=== PATIENT | female | born 1955 | race Caucasian/White ===

== ENCOUNTER 2016-11-24 17:05 | Observation (INO) | payer MEDICAID ==
[~2016-11-24] VITALS: Ht 167.6 cm; Wt 103.9 kg
[~2016-11-24 17:05] MED LIST: BENADRYL 25MG C25 MG PO; BENADRYL ALLERG25 MG PO; CIPRO 500MG TA500 MG PO; D3-20002000 UNIT PO; DIAZEPAM2 MG PO; DIOVAN PO; DIOVAN80 MG OR; EFFEXOR75 MG PO; FLEXERIL5 MG PO; GABAPENTIN100 M1 PO; GABAPENTIN100 MG PO; GAVISCON 95 MG360 ML PO; HYDROCHLOROTHIA25 M1 PO; IMDUR ER30 MG PO; INVEGA6 MG PO; ISOSORBIDE MONO30 MG PO; KLOR-CON M2020 ME1 PO; LACTULOSE10 GM/15 M PO; LACTULOSE20 GM/30 M FT; LOSARTAN POTAS100 MG PO; MACRODANTIN100 MG PO; MAXZIDE 50 MG-71 TAB OR; MAXZIDE1 TAB PO; METFORMIN HCL1000 MG PO; METFORMIN1000 MG PO; METOPROLOL100 MG PO; MICONAZOLE1 POW; NAPROSYN500 M1 PO; NEURONTIN600 MG PO; NITROGLYCERIN0.4 MG SL; NORCO 325 MG-51 TAB PO; NYSTATIN C30 GM/TUBE EX; OMEPRAZOLE40 MG PO; OMNICEF 300 MG300 MG PO; PANTOPRAZOLE SO40 MG PO; PERCOGESIC1 TAB PO; PREDNISONE 20MG20 MG PO; PROMETHAZINE HC25 M1 PO; RESTORIL 30MG C30 MG PO; RISPERDAL2 MG PO; ROBAFEN DM 10120 ML PO; TEMAZEPAM15 MG PO; TRAMADOL 50MG T1 PAK PO; TRAMADOL 50MG T50 MG PO; TRAZODONE150 MG PO; TYLENOL ES500 M1 PO; VENLAFAXINE HCL75 M1 PO; VENLAFAXINE HY150 MG PO; VISTARIL25 MG PO; VITAMIN D350000 UNIT PO; VOLTAREN100 GM TP; ZANTAC 150150 MG PO; ZYLOPRIM 100MG100 MG PO
[2016-11-24 17:06] VITALS: BP 157/77
[2016-11-24] MEDS ORDERED: HUMULIN 70/30 KW3 ML SC (17:16)
--- NOTE | 2016-11-24 17:22 | Emergency Room Report ---
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 EMS STATES THEY WERE CALLED OUT FOR HIGH BLOOD SUGAR >300. 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 N Clinical Suspician of Infection? N Mental Status: 1 - Regular (Normal Baseline) Sepsis Risk:Low Sepsis Risk Have you (or family members/close friends) recently traveled outside the [place]? N If Yes, where/when: Have you had exposure to infectious disease within the past month? TB? Other? Specify: Comment The patient is brought in by ambulance from [facility] with report of elevated blood sugar. The patient says she was not told how high her blood sugar was. She says she feels woozy. She has chronic RIGHT knee pain. Otherwise denies complaint. She says she gets for insulin shots a day, 2 in the morning and 2 at 4:30 PM. She said she has had all for these today. ALLERGIES Coded Allergies: Penicillins (01/04/16) Sulfa (Sulfonamide Antibiotics) (01/04/16) codeine (01/04/16) Home Medications Active Scripts Isosorbide Mononitrate (Isosorbide Mononitrate ER) 60 MG PO DAILY #30 Ref 1 Prov: 08/05/15 Ranitidine Hcl (Zantac) 150 MG PO BID #20 TAB Prov: 11/14/14 Ciprofloxacin HCl (Cipro 500MG TAB) 500 MG PO BID #14 TAB Prov: 04/14/16 Reported Medications Acetaminophen (Tylenol Extra-Strength) 650 MG PO Q4HP PRN PAIN Gabapentin (Gabapentin 100MG) 200 MG PO TID Tramadol Hcl (Tramadol 50MG) 50 MG PO Q6HP PRN PAIN TRIAMTERENE/HYDROCHLOROTHIAZID (Maxzide 75 MG-50 MG Tablet) 1 TAB PO DAILY Valsartan (Diovan 80MG) 80 MG PO DAILY Lactulose (Lactulose) 20 GM PO DAILYP PRN CONSTIPATION NITROGLYCERIN (Nitrostat) 0.4 MG SL [id number] PRN CHEST PAIN Guaifenesin (Robafen) 10 ML PO Q4HP PRN COUGH Metoprolol Tartrate (Metoprolol) 100 MG PO BID Diphenhydramine Hcl (Benadryl 25MG CAP) 25 MG PO Q4H PRN PRN RASH PROMETHAZINE HCL (Promethazine 25mg Tab) 25 MG PO Q6HP PRN NAUSEA/VOMITING Temazepam (Restoril 30MG) 30 MG PO QHSP PRN SLEEP Paliperidone (Invega) 6 MG PO DAILY Pantoprazole Sodium (Pantoprazole 40MG) 40 MG PO DAILY Venlafaxine Hydrochloride (Venlafaxine XR) 150 MG PO DAILY Venlafaxine Hydrochloride (Venlafaxine XR) 75 MG PO QHS MAG CARB/AL HYDROX/ALGINIC AC (Gaviscon Liquid) 30 ML PO Q4HP PRN STOMACH ALLOPURINOL (ZYLOPRIM 100MG) 100 MG PO DAILY CHOLECALCIFEROL (VITAMIN D3) (Dialyvite Vitamin D3 Max) 50,000 IUNITS PO WEEKLY Cholecalciferol (Vitamin D3) (Vitamin D3) 2,000 UNIT PO DAILY INSUL REG 30%ISOPHAN 70% HUMAN (Humulin 70-30 Vial) 75 UNITS SC TID (David Rasheed MD) History Medical History General CAD? No Angina: No [place]: No Hypertension? Yes Hyperlipidemia? No CHF? No DVT? No PE? No COPD? No Asthma? Yes Anemia? No GERD? No Gastric ulcers? No GI Bleed? No Hernia? No Thyroid Problems? No Hypothyroidism? No CVA? No Seizures? Yes Diabetes? Yes Insulin Dependent: No Insulin Pump: No Home FSBS? No Renal Insuffiency? No End Stage Renal Disease? No UTI? Yes Stones? No BPH? No GB Disease: No Nephritic Syndrome? No Asplenia? No Hepatitis? No Sickle Cell Disease? No Arthritis? No Migraines? No Cataracts? No Glaucoma? Yes MRSA? No HIV? No TB? No Anxiety? No Depression? No Cancer? Yes Site: SKIN CA -NOSE More? Yes Additional hx: OSTEOARTHRITIS, PARANOID SCHIZOPHRENIA Immunization Hx DT/Tetanus Unknown Flu Refused Pneumonia Refuses Surgical Hx Previous Surgery?Y HEART CATH TMJ HYSTERECTOMY Family History Family Hx Diabetes Yes CAD Yes Hypertension Yes Hyperlipidemia Yes Cancer No TB No Social History Smoking Hx Smoker: Never Smoker Tobacco: No Packs/day < 1 Pack Alcohol Alcohol: No (David Rasheed MD) Review of Systems All Other Systems Reviewed and Negative Constitutional see HPI, denies fever Respiratory denies shortness of breath Cardiovascular denies chest pain Gastrointestinal denies abdominal pain, denies diarrhea, denies vomiting Musculoskeletal joint pain (David Rasheed MD) Physical Exam Vital Signs Vital Signs Date Time Temp Pulse Resp B/P Pulse O2 O2 Flow FiO2 Ox Delivery Rate 11/24 2049 68 14 176/83 93 11/24 1852 70 14 120/76 98 11/24 1815 74 14 144/91 98 11/24 1706 98.0 70 18 157/77 95 General Appearance high BMI Eye Exam - bilateral eye normal exam, bilateral eye PERRL, bilateral eye EOMI Ear, Nose, Throat hearing grossly normal, normal ENT inspection Neck normal inspection, non-tender, supple, full range of motion Respiratory Status Yes: trachea midline, chest symmetrical, non tender chest. No: respiratory distress. Lung Sounds bilateral: normal breath sounds, lungs clear. Cardiovascular normal exam, regular rate/rhythm, no peripheral edema, no gallop, no JVD, no murmur, no rub, normal peripheral pulses Peripheral Pulses Pulses normal Yes Gastrointestinal normal bowel sounds, normal exam, non tender, soft, no organomegaly Extremities non-tender, normal range of motion, normal inspection Neurologic alert, dry roller II-XII nml as tested, normal exam, no motor/sensory deficits, oriented x 3 Mental status normal mood/affect Skin intact, normal color, warm/dry (David Rasheed MD) Medical Decision Making LABS/Meds/Orders Pt receiving controlled substance in ED? No Results/Orders Laboratory Tests 11/24/16 2030: Urine Color OTHER, Urine Appearance CLEAR, Urine pH 6.0, Ur Specific [place] 1.010, Urine Protein NEGATIVE, Urine Ketones NEGATIVE, Urine Blood 2+ H, Urine Nitrate NEGATIVE, Urine Bilirubin NEGATIVE, Urine Urobilinogen 0.2, Ur Leukocyte Esterase NEGATIVE, Urine RBC NONE, Urine WBC 3-5, Ur Squamous Epith Cells OCC, Urine Bacteria TRACE, Urine Glucose 3+ H 11/24/16 2001: POC Glucose 539 *H 11/24/161744: Sodium 128 L, Potassium 4.7, Chloride 96 L, Carbon Dioxide 23, BUN 18, Creatinine 1.6 H, Estimated Creat Clear 62, Estimated GFR (MDRD) 33 L, Glucose 638 *H, Calcium 9.6, Total Bilirubin 0.3, AST 62 H, ALT 53, Alkaline Phosphatase 171 H, Creatine Kinase 32, CK-MB (CK-2) Rel Index 1.6, CK and CKMB Interp 0.5, Troponin I < 0.02, Total Protein 7.7, Albumin 2.9 L, Globulin 4.8 H, Albumin/Globulin Ratio 0.6 L, WBC 8.2, RBC 3.98 L, Hgb 11.2 L, Hct 37.6, MCV 94.3, RDW 13.9, Plt Count 164, MPV 7.8, Gran % 59.3, Gran # 4.9, Lymphocytes % 30.8, Monocytes % 5.7, Eosinophils % 3.4, Basophils % 0.9, Lymphocytes # 2.5, Monocytes # 0.5, Eosinophils # 0.3, Basophils # 0.1, PUBS MCHC 29.7 L, MCH 28.0 , Acetone Level NONE DETECTED 11/24/161743: VBG pH 7.38, VBG Total CO2 23.1, VBG O2 Sat (Calc) 90.2 H, VBG Base Excess -3.1 L, Mixed VBG pCO2 37.6 L, Mixed VBG pO2 59.1 H, Mixed VBG HCO3 21.9 L Current Medication Orders Sig/Elisabeth Start time Last Medication Dose Route Stop Time Status Admin Insulin Human Regular 5 UNITS ONCE ONE 11/24 2114 DC 11/24 IVP 11/24 Insulin Human Regular 0 .STK-MED ONE 11/24 2112 DC .ROUTE Insulin Human [rDNA 0 .STK-MED ONE 11/25 1903 DC origin] SC Sodium Chloride 1,000 ML .STK-MED ONE 11/24 1902 DC IV Insulin Human [rDNA 15 UNITS ONCE ONE 11/24 1899 DC 11/24 origin] SC 11/24 Sodium Chloride 1,000 ML .Q1H1M 11/24 1845 DC 11/24 IV 11/24 Sodium Chloride 10 ML PRN PRN 11/24 1714 AC IV 11/25 1713 Orders Procedure Date/time Status DIET-NOTHING BY MOUTH 11/25 B Active Decision to admit 11/[address] ABD & PELVIS W/O CONTRAST 11/[address] SCAN REQ 11/24 2108 Complete URINARY CATHETER INSERT 11/24 2008 Active FINGERSTICK BLOOD SUGAR 11/24 2000 Complete VENOUS BLOOD GAS 11/25 1719 Active IV SALINE LOCK 11/24 1714 Active 12 LEAD EKG-ALISSA (INITIAL) 11/24 1713 Active ELECTROCARDIOGRAM REQUEST 11/24 1713 Active CHEST-PORTABLE 11/24 1713 Active URINALYSIS/COMPLETE 11/24 1713 Complete INVESTIGATION DIVISION SERGEANT 11/24 1712 Active FSBS REQUEST BY CARE AREA 11/24 171 Active CBC WITH AUTO DIFF 11/24 1712 Complete CARDIAC ENZYMES 11/24 1712 Complete CHEM 12 PROFILE 11/24 1712 Complete Acetone, Serum 11/24 1712 Complete CM/EKG CM/EKG Comments EKG interpreted by David Rasheed MD: Rhythm: sinus Rate: 69 [place]: normal Ectopy: none Conduction: Complete LEFT bundle branch block, old. ST Segment Changes: none T Wave Changes: none Q Waves: none No evidence of acute ischemia or injury Baseline artifact present, but I consider the EKG adequate for accurate interpretation. No change from prior electrocardiogram Progress - 8:00 PM: At shift change, I have discussed the patient with Dr. Gayle, who will assume care of the patient at this time. I have discussed all clinical information including history, physical and diagnostic study results. Preliminary diagnoses based on information available at this point have been recorded by me. Controlled substance administration and critical care statement are also preliminary, as of the time of handoff. (David Rasheed MD) LABS/Meds/Orders Pt receiving controlled substance in ED? No XRAY/CT/US XRAY/CT/US CT abdomen, pelvis CT interpretation by discussed w/radiologist Time results known: 2206 CT Results normal/NAD (Nicholas Gayle MD) Departure Departure Disposition Still a Patient Condition STABLE ED Critical Care Critical Care No (David Rasheed MD) Departure Time of Disposition 2206 Clinical Impression Primary Impression: Hyperglycemia Secondary Impressions: LBBB (left bundle branch block) (Nicholas Gayle MD) at 2011 at 2207
--- OUTSIDE RECORDS SUMMARY | 2016-11-24 17:33 | External Medical Summary Rpt ---
Author Author [employer] Skinner, [employer] Address Unknown Phone Unavailable
--- OUTSIDE RECORDS SUMMARY | 2016-11-24 17:33 | External Medical Summary Rpt ---
Author Author [employer] Address Unknown Phone Unavailable Purpose Continuity of Care Document - through 2016
--- OUTSIDE RECORDS SUMMARY | 2016-11-24 17:33 | External Medical Summary Rpt ---
Author Author BERONICA Skinner, [employer] Address Unknown Phone Unavailable
[2016-11-24 17:48] LABS: VENOUS ABE -3.1 MMOL/L (-2.4-2.3); VENOUS O2 SAT 90.2 % (75-80); VENOUS TCO2 23.1 MMOL/L (23-27)
[2016-11-24 18:21] LABS: HEMOGLOBIN 11.2 g/dL (12.2-16.2); LYMPH # 2.5 K/mm3 (0.7-4.5); LYMPH % 30.8 % (10-50.0)
[2016-11-24 18:26] LABS: BUN 18 mg/dL (7-18)
[2016-11-24 18:28] LABS: GFR (ESTIMATED) 33 ML/MIN (59-)
[2016-11-24 20:47] LABS: URINE BILIRUBIN - DIPSTICK NEGATIVE (NEG); URINE BLOOD 2+ (NEG)
[2016-11-24 21:00] LABS: URINE SQUAMOUS CELLS OCC #/hpf (0-5)
--- NOTE | 2016-11-24 22:58 | RADIOLOGY REPORT PS360 ---
CHEST-PORTABLE HISTORY: .HYPERGLYCEMIA ORDERING PHYSICIAN: David Rasheed MD PATIENT AGE: 61 years COMPARISON: 08/25/2015 FINDINGS: There are low lung volumes with mild prominence of the cardiac silhouette. No definite lobar consolidation or collapse. There is vascular crowding in the lung bases. IMPRESSION: Low lung volumes, no definite acute finding.
[2016-11-25 00:14] VITALS: BP 111/70
[2016-11-25 00:42] VITALS: BP 142/85
[2016-11-25] MEDS ORDERED: ACETAMINOPHEN500 M3 PO (01:57)
[2016-11-25] MEDS ORDERED: IBUPROFEN400 MG PO (01:57)
[2016-11-25] MEDS ORDERED: IMODIUM 2MG. CAP2 MG PO (01:58)
[2016-11-25] MEDS ORDERED: PROCTOCREAM-HC2.51 TP (01:59)
[2016-11-25] MEDS ORDERED: HUMULIN 70/30 KW3 ML SC (02:01)
[2016-11-25 05:14] VITALS: BP 126/56
[2016-11-25 06:58] LABS: HEMOGLOBIN 10.8 g/dL (12.2-16.2); LYMPH # 3.2 K/mm3 (0.7-4.5)
--- NOTE | 2016-11-25 07:10 | PHARMACY CLINIC NOTE ---
Patient Demographics Patient Demographics Admission date: 11/25/16 Date: 11/25/16 Time: 0709 Allergies Coded Allergies: Penicillins (01/04/16) Sulfa (Sulfonamide Antibiotics) (01/04/16) codeine (01/04/16) HEIGHT- FT: 5 IN: 6.00 K.[id number] VTE General Information Labs: Laboratory Tests 11/24 1745 Hematology Hgb (12.2 - 16.2 g/dL) 11.2 L Hct (37.0 - 47.0 %) 37.6 Plt Count (142 - 424 K/mm3) 164 Disclaimer The following section includes nursing documentation that has been pulled in for pharmacy review. Patient's VTE score: 4 Patient's VTE Risk: LOW RISK Clinical trial participant? No VTE prophylaxis [id number] VTE prophylaxis ordered? Yes Type of prophylaxis/treatment: LULU at 0710
[2016-11-25 08:00] VITALS: BP 147/86
--- NOTE | 2016-11-25 08:00 | RADIOLOGY REPORT PS360 ---
CT ABD PELVIS W/O CONTRAST CLINICAL INDICATION: Generalized abdominal pain ABDOMEN PAIN ORDERING PHYSICIAN: Neal Gayle MD PATIENT AGE: 61 years COMPARISON: 04/14/2016 TECHNIQUE: Axial images obtained with sagittal and coronal reformats. PROCEDURE: Oral Contrast: None IV Contrast: None . FINDINGS: Lower thorax: No acute finding ABDOMEN: Liver: No masses or biliary dilatation. Previously noted areas of hypoattenuation not apparent on today's exam and may have been due to fatty liver infiltration or areas of infarction Gallbladder: Nondistended. No radio opaque stones. Pancreas: No masses or peripancreatic fluid collections. Spleen: Unremarkable. Adrenals: Unremarkable Kidneys/ureters: Punctate calculus lower pole right kidney. No hydronephrosis. No obstructing ureteral calculi Stomach bowel: Nondistended. No obvious mass or thickening. Appendix: No evidence of appendicitis. PELVIS: Reproductive: Prior hysterectomy Bladder: Nondistended. No obvious stones or masses. ABDOMEN & PELVIS: Peritoneum: No abnormal fluid collections. No obvious inflammatory changes. No free air. Lymph nodes: No enlarged lymph nodes apparent. Vasculature: No evidence of abdominal aortic aneurysm. No retroperitoneal hemorrhage evident. Bones: Degenerative changes lower thoracic spine Soft tissues: Small umbilical hernia containing fat. IMPRESSION: 1. No acute intra-abdominal or pelvic pathology. 2. Small umbilical hernia containing fat. 3. Nonobstructing right nephrolithiasis. 4. Previously noted hypodense regions within the liver no longer apparent
[2016-11-25 09:19] VITALS: BP 147/86
--- NOTE | 2016-11-25 13:26 | Discharge Summary Standard ---
Demographics: Admit date: 11/24/16 Chief complaint: weakness- elevated glu PRIMARY DIAGNOSIS: HYPERGLYCEMIA Allergies: Coded Allergies: Penicillins (01/04/16) Sulfa (Sulfonamide Antibiotics) (01/04/16) codeine (01/04/16) History of present illness: History of present illness: pt with elevated glu at long-term despite diet and insulin which they and she are compliant- she did not feel well and was weak and dec po intake with polydipsia and polyuria - she was seen in the ed and despite ivf and insulin had persistant elvation and unable to drink fluids and was admitted for treatment- no fever or diarrhea Past medical history: Family HX Family Hx Insignificant Yes Immunization HX DT/Tetanus Unknown Flu Refused Pneumonia Refuses TB Test in last year Yes Result Negative General CAD? No Angina: No [place]: No Hypertension? Yes Hyperlipidemia? No CHF? No DVT? No PE? No COPD? No Asthma? Yes Anemia? No GERD? No Gastric ulcers? No GI Bleed? No Hernia? No Thyroid Problems? No Hypothyroidism? No CVA? No Seizures? Yes Diabetes? Yes Insulin Dependent: No Insulin Pump: No Home FSBS? No Renal Insuffiency? No UTI? Yes Stones? No BPH? No GB Disease: No Nephritic Syndrome? No Asplenia? No Hepatitis? No Sickle Cell Disease? No Arthritis? No Migraines? No Cataracts? No Glaucoma? Yes MRSA? No HIV? No TB? No Anxiety? No Depression? No Cancer? Yes Site: SKIN CA -NOSE More? Yes Additional hx: OSTEOARTHRITIS, PARANOID SCHIZOPHRENIA Past Surgical HX Previous Surgery?Y HEART CATH TMJ HYSTERECTOMY Current home meds: Active Scripts Isosorbide Mononitrate (Isosorbide Mononitrate ER) 60 MG PO DAILY #30 Ref 1 Prov: 08/05/15 Ranitidine Hcl (Zantac) 150 MG PO BID #20 TAB Prov: 11/14/14 Ciprofloxacin HCl (Cipro 500MG TAB) 500 MG PO BID #14 TAB Prov: 04/14/16 Reported Medications Gabapentin (Gabapentin 100MG) 200 MG PO TID Tramadol Hcl (Tramadol 50MG) 50 MG PO Q6HP PRN PAIN Valsartan (Diovan 80MG) 80 MG PO DAILY Lactulose (Lactulose) 20 GM PO DAILYP PRN CONSTIPATION Diphenhydramine Hcl (Benadryl 25MG CAP) 25 MG PO Q4HP PRN RASH Pantoprazole Sodium (Pantoprazole 40MG) 40 MG PO DAILY VENLAFAXINE HCL (Venlafaxine HCl ER) 150 MG PO QAM Venlafaxine Hydrochloride (Venlafaxine XR) 75 MG PO QHS TRIAMTERENE/HYDROCHLOROTHIAZID (Maxzide 75 MG-50 MG Tablet) 1 TAB PO DAILY NITROGLYCERIN (Nitrostat) 0.4 MG SL Q5MINP PRN CHEST PAIN GUAIFENESIN/DEXTROMETHORPHAN (Robafen-Dm Syrup) 30 ML PO Q4HP PRN COUGH MAG CARB/AL HYDROX/ALGINIC AC (Gaviscon Liquid) 30 ML PO Q4HP PRN ACID REFLUX Cholecalciferol (Vitamin D3) (Vitamin D3) 50,000 UNIT PO WEEKLY Cholecalciferol (Vitamin D3) (D3-2000) 2,000 UNIT PO QAM INSULIN NPH HUM/REG INSULIN HM (Humulin 70/30 Kwikpen) 75 UNITS SC TID Acetaminophen (Acetaminophen Extra Strength) 650 MG PO Q4HP PRN PAIN IBUPROFEN MICRONIZED (IBUPROFEN 400MG) 400 MG PO Q4HP PRN PAIN/FEVER Loperamide Hcl (Loperamide) 2 MG PO Q4HP PRN DIARRHEA Hydrocortisone (Proctozone-Hc) 2.5 TP QIDP PRN RASH Metoprolol Tartrate (Metoprolol) 100 MG PO BID PROMETHAZINE HCL (Promethazine 25mg Tab) 25 MG PO Q6HP PRN NAUSEA/VOMITING Temazepam (Restoril 30MG) 30 MG PO QHSP PRN SLEEP Paliperidone (Invega) 6 MG PO DAILY ALLOPURINOL (ZYLOPRIM 100MG) 100 MG PO DAILY Social Hx: Smoking HX Tobacco No Packs/day < 1 PACK Alcohol Alcohol: No Hx of Drug Use Drug Use? No Patien't marital status is Patient's support system is good Review of systems: Constitutional see HPI, malaise, weakness. No: fever. Eyes No: drainage. Ears, Nose, Mouth, Throat No ear pain, No epistaxis Respiratory No: cough, shortness of breath. Cardiovascular No chest pain, No palpitations Gastrointestinal/Abdominal see HPI, No diarrhea, poor appetite, poor fluid intake, No vomiting Genitourinary No: dysuria, frequency, hesitancy, hematuria. Musculoskeletal No: back pain, joint pain, joint swelling, neck pain. Skin No: rash. Neurological No: headache, tremors, seizure disorder. Psychiatric No: depressed. Exam: Lab data for last 24 hours: Laboratory Tests 11/25/16 1120: POC Glucose 385 *H 11/25/16 0630: Sodium 134 L, Potassium 4.3, Chloride 103, Carbon Dioxide 25, BUN 15, Creatinine 1.3 H, Estimated Creat Clear 75, Estimated GFR (MDRD) 42 L, Glucose 378 H, Calcium 9.4, WBC 10.8, RBC 3.91 L, Hgb 10.8 L, Hct 35.5 L, MCV 90.8, RDW 14.1, Plt Count 156, MPV 7.8, Gran % 60.6, Gran # 6.6, Lymphocytes % 29.0, Monocytes % 6.0, Eosinophils % 3.6, Basophils % 0.8, Lymphocytes # 3.2, Monocytes # 0.7, Eosinophils # 0.4, Basophils # 0.1, PUBS MCHC 30.4 L, MCH 27.6 11/25/16 0615: POC Glucose 366 *H 11/24/16 2030: Urine Color OTHER, Urine Appearance CLEAR, Urine pH 6.0, Ur Specific [place] 1.010, Urine Protein NEGATIVE, Urine Ketones NEGATIVE, Urine Blood 2+ H, Urine Nitrate NEGATIVE, Urine Bilirubin NEGATIVE, Urine Urobilinogen 0.2, Ur Leukocyte Esterase NEGATIVE, Urine RBC NONE, Urine WBC 3-5, Ur Squamous Epith Cells OCC, Urine Bacteria TRACE, Urine Glucose 3+ H 11/24/162000: POC Glucose 539 *H 11/24/16 1745: Sodium 128 L, Potassium 4.7, Chloride 96 L, Carbon Dioxide 23, BUN 18, Creatinine 1.6 H, Estimated Creat Clear 62, Estimated GFR (MDRD) 33 L, Glucose 638 *H, Calcium 9.6, Total Bilirubin 0.3, AST 62 H, ALT 53, Alkaline Phosphatase 171 H, Creatine Kinase 32, CK-MB (CK-2) Rel Index 1.6, CK and CKMB Interp 0.5, Troponin I < 0.02, Total Protein 7.7, Albumin 2.9 L, Globulin 4.8 H, Albumin/Globulin Ratio 0.6 L, WBC 8.2, RBC 3.98 L, Hgb 11.2 L, Hct 37.6, MCV 94.3, RDW 13.9, Plt Count 164, MPV 7.8, Gran % 59.3, Gran # 4.9, Lymphocytes % 30.8, Monocytes % 5.7, Eosinophils % 3.4, Basophils % 0.9, Lymphocytes # 2.5, Monocytes # 0.5, Eosinophils # 0.3, Basophils # 0.1, PUBS MCHC 29.7 L, MCH 28.0 , Acetone Level NONE DETECTED 11/24/16 1744: VBG pH 7.38, VBG Total CO2 23.1, VBG O2 Sat (Calc) 90.2 H, VBG Base Excess -3.1 L, Mixed VBG pCO2 37.6 L, Mixed VBG pO2 59.1 H, Mixed VBG HCO3 21.9 L Admission vital signs: 1ST Vital Signs Result Date Time Pulse Ox 95 11/24 170 B/P 157/77 11/24 170 Temp 98.0 11/24 170 Pulse 70 11/24 1706 Resp 18 11/24 170 O2 Delivery ROOM AIR 11/25 0014 Exam General appearance: alert Eyes: PERRLA ENT: dry mucous membranes Neck: no carotid bruit Cardiovascular: regular rate & rhythm, murmur Respiratory: normal breath sounds ABD: soft, no guarding, no organomegaly Genitourinary: no hematuria Extremities: moves all Musculoskeletal: equal muscle strength Skin: dry 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 Follow up Follow up in office in: 7 DAYS with: Neal Gayle MD at 1326
[2016-11-25 14:53] VITALS: BP 147/86
== END 2016-11-25 14:53 | disposition home or self-care (01) ==
LOC: ER 17:05 → 2ND 22:12
PROVIDERS: Emergency Medicine
DX: E11.65 Type 2 diabetes mellitus with hyperglycemia (principal); F20.0 Paranoid schizophrenia; Z91.11 Patient's noncompliance with dietary regimen
CPT/HCPCS: G0378

== ENCOUNTER 2017-06-23 11:15 | Emergency (ER) | payer MEDICAID ==
[~2017-06-23] VITALS: Ht 167.6 cm; Wt 104.3 kg
[~2017-06-23 11:15] MED LIST changes: +ACETAMINOPHEN500 M3 PO; +HUMULIN 70/30 KW3 ML SC; +IBUPROFEN400 MG PO; +IMODIUM 2MG. CAP2 MG PO; +MACROBID100 M3 PO; +PROCTOCREAM-HC2.51 TP
--- OUTSIDE RECORDS SUMMARY | 2017-06-23 11:26 | External Medical Summary Rpt | CCD ---
Author Author , BERONICA Organization BERONICA Address Unknown Phone [email or web address] Care Team Providers Care Baseball Scout Name Role Phone ASHLEIGH RUIZ MD, Unavailable Unavailable ASHLEIGH Rivera MD, Unavailable Unavailable [place] Rivera MD Purpose Continuity of Care Document - 10-26-2012 through 2016 Problems Code Diagnosis DOS Provider Status 305.1 305.1 03-29-2013 [place] TOBACCO USE [facility] DISORDER [facility] 401.9 401.9 03-29-2013 [place] HYPERTENSIO [facility] N [facility]OS [facility] 780.39 780.39 03-29-2013 [place] OTHER [facility] CONVULSIONS [facility] 786.59 [phone] 03-29-2013 [place] CHEST PAIN [facility] V14.0 V14.0 03-29-2013 [place] HX-PENICILL [facility] IN ALLERGY [facility] 727.09 727.09 10-26-2012 [place] SYNOVITIS [facility] 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 I44.7 LEFT BUNDLE-BRAN CH BLOCK, UNSPECIFIED N39.0 URINARY TRACT INFECTION, SITE NOT SPECIFIED R73.9 HYPERGLYCEM IA, UNSPECIFIED Allergies, Adverse Reactions, Alerts Type Drug Allergy Adverse Reaction to Substance Substance Reaction Severity Penicillin I-ITCHING Intermediate SULFA (sulfonamide) I-RASH Intermediate Codeine I-ITCHING Intermediate Medications Na ND Rx Da Fi Fi Am Da Di Ph RX Ph St me C No te ll ll ou ys ag ar # ys at rm s nt no ma ic us Or Da si cy ia de te s n re d Sa 63 09 0 No li 80 -1 ne 70 8- Lo 10 20 ng Fl 07 13 er us 5 h Ac 10 ti ML ve Sy ri ng e Sa 63 09 0 No li 80 -1 ne 70 8- Lo 10 20 ng Fl 07 13 er us 5 h Ac 10 ti ML ve Sy ri ng e Vital Signs 03-29-2013 13:20 Name Value Interpretat Reference Comment ion Range BP 67 mm[Hg] Diastolic BP Systolic 121 mm[Hg] Heart 84 /min Rate/Pulse O2% 97 % Respiratory 18 /min Rate 03-29-2013 12:01 Name Value Interpretat Reference Comment ion Range BP 84 mm[Hg] Diastolic BP Systolic 141 mm[Hg] Heart 78 /min Rate/Pulse O2% 96 % Respiratory 18 /min Rate 10-26-2012 13:53 Name Value Interpretat Reference Comment ion Range Body 98.9 [degF] Temperature BP 92 mm[Hg] Diastolic BP Systolic 122 mm[Hg] Heart 88 /min Rate/Pulse O2% 95 % Respiratory 20 /min Rate 10-26-2012 13:16 Name Value Interpretat Reference Comment ion Range Body 99.0 [degF] Temperature BP 69 mm[Hg] Diastolic BP Systolic 120 mm[Hg] 10-26-2012 12:25 Name Value Interpretat Reference Comment ion Range Heart 76 /min Rate/Pulse O2% 96 % Respiratory 20 /min Rate Results Labs Lab Lab Date Result Refere Interp Status Commen Order Detail nces retati t Range on Gas panel in Arterial blood (01-27-2017 09:01) Arteria ACCEPTA complet l 017 BLE ed patency 09:01 Wrist artery --pre arteria l punctur e SOURCE RIGHT complet 017 RADIAL ed 09:01 Urinalysis dipstick W Reflex Microscopic panel in Urine (11-24-2016 20:30) Bacteri TRACE O complet a 017 ed [Presen 20:30 ce] in Urine sedimen t by Light microsc opy Erythro NONE 0 complet cytes 017 ed [Presen 20:30 ce] in Urine sedimen t by Light microsc opy Epithel OCC 0#/hp complet ial 017 f - ed cells.s 20:30 5#/hp quamous f [Presen ce] in Urine sedimen t by Microsc opy high power field Leukocy 3-5 O complet keena 017 wbc/hpf ed [#/volu 20:30 me] in Urine Urinalysis dipstick W Reflex Microscopic panel in Urine (11-24-2016 20:30) Appeara 05-16-2 CLEAR CLEAR complet nce of 017 ed Urine 20:30 Bilirub 11-24- NEGATIV NEG complet in 017 E ed [Presen 20:30 ce] in Urine by Test strip Erythro 11-24- 2+ NEG Abnorma complet cytes 017 l ed [Presen 20:30 ce] in Urine Color OTHER YELLOW complet of 017 ed Urine 20:30 Ketones NEGATIV NEG complet 017 E ed [Presen 20:30 ce] in Urine by Automat ed test strip Mucus NEGATIV NEG complet [Presen 017 E ed ce] in 20:30 Urine sedimen t by Light microsc opy Nitrite 11-24- NEGATIV NEG complet 017 E ed [Presen 20:30 ce] in Urine by Test strip Urobili 11-24-2 0.2 NEG complet nogen 017 ed [Presen 20:30 ce] in Urine by Test strip TSH SerPl DL<=0.005 mIU/L-aCnc (09-11-2016 10:40) TSH 3.24 0.4-4.2 complet SerPl 017 uIU/mL ed DL<=0.0 10:40 05 mIU/L-a Cnc COMPREHENSIVE METABOLIC PANEL (03-29-2013 11:45) Glucose 03-29- 185 74-106 complet 013 mg/dL ed Bld-mCn 11:45 c BUN 03-29-2 5 mg/dL 7-18 complet Bld-mCn 013 ed c 11:45 Creat 03-29-2 0.8 0.6-1.0 complet SerPl-m 013 mg/dL ed Cnc 11:45 ESTIMAT 03-29-2 206 50-200 complet ED 013 ML/MIN ed CREATIN 11:45 INE CLEARAN CE GFR 03-29-2 74 59- complet (ESTIMA 013 ML/MIN ed LULU) 11:45 Sodium 03-29-2 140 136-145 complet SerPl-s 013 mmoL/L ed Cnc 11:45 Potassi 4.1 3.5-5.1 complet um 013 mmoL/L ed SerPl-s 11:45 Cnc Chlorid 03-29- 102 98-107 complet e 013 mmoL/L ed SerPl-s 11:45 Cnc CO2 09-18-2 28 21.0-32 complet SerPl-s 013 mmoL/L .0 ed Cnc 11:45 Calcium -18-2 8.6 8.5-10. complet 013 mg/dL 1 ed SerPl-m 11:45 Cnc Prot -18-2 7.6 6.4-8.2 complet SerPl-m 013 gm/dL ed Cnc 11:45 Albumin -18-2 3.5 3.4-5.0 complet 013 gm/dL ed SerPl-m 11:45 Cnc Globuli -18-2 4.1 1.3-3.2 complet n 013 gm/dL ed Ser-mCn 11:45 c Albumin -18-2 0.9 UNK 1.1-1.8 complet /Glob 013 ed SerPl-m 11:45 Rto Bilirub -18-2 0.2 0.2-1.0 complet 013 mg/dL ed SerPl-m 11:45 Cnc AST -18-2 20 U/L 15-37 complet SerPl-c 013 ed Cnc 11:45 ALT -18-2 43 U/L 30-65 complet SerPl-c 013 ed Cnc 11:45 ALP -18-2 131 U/L 50-136 complet SerPl-c 013 ed Cnc 11:45 BNP Bld-mCnc (03-29-2013 11:45) BNP 09-18-2 62 0-100 complet Bld-mCn 013 pg/mL ed c 11:45 CBC with AUTO DIFF (03-29-2013 11:45) WBC # -18-2 14.3 4.8-10. complet Bld 013 K/MM3 8 ed Auto 11:45 RBC # -18-2 4.66 4.2-5.4 complet Bld 013 M/mm3 ed Auto 11:45 Hgb -18-2 13.0 12.2-16 complet Bld-mCn 013 g/dL .2 ed c 11:45 Hct Fr -18-2 41.2 % 37.0-47 complet Bld 013 .0 ed 11:45 MCV RBC -18-2 88.3 fl 82.2-97 complet 013 .8 ed 11:45 MCH RBC -18-2 28.0 pg 27-31.2 complet Qn 013 ed Auto 11:45 MEAN 09-18-2 31.7 31.8-35 complet CORPUSC 013 g/dl .4 ed ULAR 11:45 HGB CONC RDW RBC 09-18-2 14.9 % 11.5-17 complet Auto 013 .5 ed 11:45 Platele 09-18-2 243 142-424 complet t Bld 013 K/mm3 ed Ql 11:45 Manual MEAN -18-2 9.3 fl 7.4-10. complet PLATELE 013 4 ed T 11:45 VOLUME Granulo 09-18-2 76.9 % 37.0-80 complet cytes 013 .0 ed Fr Bld 11:45 Auto LYMPH % 09-18-2 17.3 % 10-50.0 complet 013 ed 11:45 Monocyt 09-18-2 4.5 % 1.7-9.3 complet es Fr 013 ed Bld 11:45 Auto Eosinop 09-18-2 0.5 % 0.1-12. complet hil Fr 013 0 ed Bld 11:45 Auto Basophi 09-18-2 0.8 % 0.1-2.0 complet ls Fr 013 ed Bld 11:45 Auto Granulo 09-18-2 11.0 1.8-7.8 complet cytes # 013 K/mm3 ed Bld 11:45 Auto Lymphoc 09-18-2 2.5 0.7-4.5 complet ytes Fr 013 K/mm3 ed Bld 11:45 Auto Monocyt 09-18-2 0.6 0.1-1.0 complet es # 013 K/mm3 ed Bld 11:45 Auto Eosinop 09-18-2 0.1 0.0-0.4 complet hil # 013 K/mm3 ed Bld 11:45 Auto Basophi 09-18-2 0.1 0-0.2 complet ls # 013 K/MM3 ed Bld 11:45 Auto Encounters Encounter Start End Date Code Location Performer Type Date Emergency HUGH RUIZ (ER) 3 11:26 3 13:30 [facility] [place] Emergency HUGH Rivera (ER) 3 12:04 3 13:53 [facility] [place]
--- OUTSIDE RECORDS SUMMARY | 2017-06-23 11:26 | External Medical Summary Rpt | CCD ---
Author Author , BERONICA Organization BERONICA Address Unknown Phone [email or web address] Care Team Providers Care Oracle Business Analyst Name Role Phone ASHLEIGH RUIZ MD, Unavailable Unavailable ASHLEIGH Rivera MD, Unavailable Unavailable [place] Rivera MD Purpose Continuity of Care Document - 10-26-2012 through 2016 Problems Code Diagnosis DOS Provider Status 305.1 305.1 03-29-[address] [place] [address] [facility] DISORDER [facility] 401.9 401.9 03-29-[address] [place] [address] [facility] N NOS Hospital 780.39 780.39 03-29-[address] [place] [address] [facility] CONVULSIONS [facility] 786.59 [phone] 03-29-2013 [place] CHEST PAIN [facility] V14.0 V14.0 03-29-2013 [place] HX-P[address]IC[address] 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
--- OUTSIDE RECORDS SUMMARY | 2017-06-23 11:27 | External Medical Summary Rpt ---
Author Author [employer] [employer], [employer] Organization [employer] Address Unknown Phone Unavailable Results Glucose [Mass/volume] in Capillary blood by Glucometer Observa Value Referen Units Interpr Notes Date tion ce etation Range Glucose 70 - 110 mg/dl High No Jan 27 [Mass/vol alert informati 2016 ume] in on in 10:22 AM Capillary source blood by data Glucomete r Lactate [Moles/volume] in Blood Observa Value Referen Units Interpr Notes Date ti ce etation Range Lactate 0.4 - 2.0 mmol/L Normal No Jan 27 [Moles/vo informati 2016 9:30 lume] in on in AM Blood source data Acetone [Mass/volume] in Serum or Plasma Observa Value Referen Units Interpr Notes Date ti ce etation Range Acetone NOT No No No Jan 27 [Mass/vol DETECTD informati informati informati 2016 9:30 ume] in on in on in on in AM Serum or source source source Plasma data data data Gas panel in Arterial blood Observa Value Referen Units Interpr Notes Date ti ce etation Range Base -2.4-+2.3 MMOL/L Low No Jan 27 excess in informati 2016 9:01 Arterial on in AM blood source data Arteria ACCEPTA No No No No Jan 27 l BLE informa informa informa informa 2017 patency tion in tion in tion in tion in 9:01 AM Wrist source source source source artery data data data data --pre arteria l punctur e Bicarbona 22.0 - MMOL/L Normal No Jan 27 te 26.0 informati 2016 9:01 [Moles/vo on in AM lume] in source Arterial data blood Oxygen No No No No Jan 27 content informati informati informati informati 2016 9:01 in on in on in on in on in AM Arterial source source source source blood data data data data Carbon 35.0 - MMHG Normal No Jan 27 dioxide 45.0 informati 2017 9:01 [Partial on in AM pressure] source in data Arterial blood pH of 7.35 - MMOL/L Normal No Jan 27 Arterial 7.45 informati 2017 9:01 blood on in AM source data Oxygen 80 - 100 MMHG Normal No Jan 27 [Partial informati 2017 9:01 pressure] on in AM in source Arterial data blood Oxygen 90 - 100 % Normal No Jan 27 saturatio informati 2017 9:01 n.calcula on in AM shilo from source oxygen data partial pressure in Arterial blood SOURCE RIGHT No No No No Jan 27 RADIAL informa informa informa informa 2017 tion in tion in tion in tion in 9:01 AM source source source source data data data data Carbon 23 - 27 MMOL/L Normal No Jan 27 dioxide, informati 2016 9:01 total on in AM [Moles/vo source lume] in data Arterial blood Glucose [Mass/volume] in Capillary blood by Glucometer Observa Value Referen Units Interpr Notes Date ti ce etation Range Glucose 70 - 110 mg/dl High No Jan 27 [Mass/vol alert informati 2016 8:46 ume] in on in AM Capillary source blood by data Glucomete r CBC W Auto Differential panel in Blood Observa Value Referen Units Interpr Notes Date ti ce etation Range Basophils 0 - 0.2 K/MM3 Normal No Jan 27 informati 2016 8:40 [#/volume on in AM ] in source Blood by data Automated count Basophils 0.1 - 2.0 % Normal No Jan 27 informati 2016 8:40 leukocyte on in AM s in source Blood by data Automated count Eosinophi 0.0 - 0.4 K/mm3 Normal No Jan 27 ls informati 2016 8:40 [#/volume on in AM ] in source Blood by data Automated count Eosinophi 0.1 - % Normal No Jan 27 ls/100 12.0 informati 2016 8:40 leukocyte on in AM s in source Blood by data Automated count Granulocy 1.8 - 7.8 K/mm3 Normal No Jan 27 keena informati 2016 8:40 [#/volume on in AM ] in source Blood by data Automated count Granulocy 37.0 - % Normal No Jan 27 keena/100 80.0 informati 2016 8:40 leukocyte on in AM s in source Blood by data Automated count Hematocri 37.0 - % Low No Jan 27 t [Volume 47.0 informati 2017 8:40 on in AM Fraction] source of Blood data Hemoglobi 12.2 - g/dL Low No Jan 27 n 16.2 informati 2017 8:40 [Mass/vol on in AM ume] in source Blood data Lymphocyt 0.7 - 4.5 K/mm3 Normal No Jan 27 es informati 2017 8:40 [#/volume on in AM ] in source Unspecifi data ed specimen by Automated count Lymphocyt 10 - 50.0 % Normal No Jan 27 es informati 2017 8:40 [#/volume on in AM ] in source Unspecifi data ed specimen by Automated count Erythrocy 27 - 31.2 pg Normal No Jan 27 te mean informati 2017 8:40 corpuscul on in AM ar source hemoglobi data n [Entitic mass] Erythrocy 31.8 - g/dl Low No Jan 27 te mean 35.4 informati 2017 8:40 corpuscul on in AM ar source hemoglobi data n concentra tion [Mass/vol ume] by Automated count Erythrocy 82.2 - fl Normal No Jan 27 te mean 97.8 informati 2017 8:40 corpuscul on in AM ar volume source [Entitic data volume] by Automated count Monocytes 0.1 - 1.0 K/mm3 Normal No Jan 27 informati 2017 8:40 [#/volume on in AM ] in source Blood by data Automated count Monocytes 1.7 - 9.3 % Normal No Jan 27 /100 informati 2017 8:40 leukocyte on in AM s in source Blood by data Automated count Platelet 7.4 - fl Normal Jan 27 mean 10.4 informati 2017 8:40 volume on in AM [Entitic source volume] data in Blood by Automated count Platelets 142 - 424 K/mm3 Normal No Jan 27 informati 2017 8:40 [#/volume on in AM ] in source Blood data Erythrocy 4.2 - 5.4 M/mm3 Low No Jan 27 keena informati 2017 8:40 [#/volume on in AM ] in source Amniotic data fluid Erythrocy 11.5 - % Normal No Jan 27 te 17.5 informati 2017 8:40 distribut on in AM ion width source [Entitic data volume] by Automated count Leukocyte 4.8 - K/MM3 Normal No Jan 27 s 10.8 informati 2017 8:40 [#/volume on in AM ] in source Blood data Glucose [Mass/volume] in Capillary blood by Glucometer Observa Value Referen Units Interpr Notes Date tion ce etation Range Glucose 70 - 110 mg/dl High No November 25 [Mass/vol alert informati 2016 ume] in on in 11:20 AM Capillary source blood by data Glucomete r CBC W Auto Differential panel in Blood Observa Value Referen Units Interpr Notes Date tion ce etation Range Basophils 0 - 0.2 K/MM3 Normal No November 25 inform2016 6:30 [#/volume on in AM ] in source Blood by data Automated count Basophils 0.1 - 2.0 % Normal No November 25 informati 2016 6:30 leukocyte on in AM s in source Blood by data Automated count Eosinophi 0.0 - 0.4 K/mm3 Normal No November 25 ls informati 2016 6:30 [#/volume on in AM ] in source Blood by data Automated count Eosinophi 0.1 - % Normal No November 25 ls/100 12.0 informati 2016 6:30 leukocyte on in AM s in source Blood by data Automated count Granulocy 1.8 - 7.8 K/mm3 Normal No November 25 keena informati 2016 6:30 [#/volume on in AM ] in source Blood by data Automated count Granulocy 37.0 - % Normal No November 25 keena/100 80.0 informati 2016 6:30 leukocyte on in AM s in source Blood by data Automated count Hematocri 37.0 - % Low No November 25 t [Volume 47.0 informati 2016 6:30 on in AM Fraction] source of Blood data Hemoglobi 12.2 - g/dL Low No November 25 n 16.2 informati 2016 6:30 [Mass/vol on in AM ume] in source Blood data Lymphocyt 0.7 - 4.5 K/mm3 Normal No November 25 es informati 2016 6:30 [#/volume on in AM ] in source Unspecifi data ed specimen by Automated count Lymphocyt 10 - 50.0 % Normal No November 25 es informati 2016 6:30 [#/volume on in AM ] in source Unspecifi data ed specimen by Automated count Erythrocy 27 - 31.2 pg Normal No November 25 te mean informati 2016 6:30 corpuscul on in AM ar source hemoglobi data n [Entitic mass] Erythrocy 31.8 - g/dl Low No November 25 te mean 35.4 informati 2016 6:30 corpuscul on in AM ar source hemoglobi data n concentra tion [Mass/vol ume] by Automated count Erythrocy 82.2 - fl Normal No November 25 te mean 97.8 informati 2016 6:30 corpuscul on in AM ar volume source [Entitic data volume] by Automated count Monocytes 0.1 - 1.0 K/mm3 Normal No November 25 informati 2016 6:30 [#/volume on in AM ] in source Blood by data Automated count Monocytes 1.7 - 9.3 % Normal No November 25 /100 informati 2017 6:30 leukocyte on in AM s in source Blood by data Automated count Platelet 7.4 - fl Normal No November 25 mean 10.4 informati 2016 6:30 volume on in AM [Entitic source volume] data in Blood by Automated count Platelets 142 - 424 K/mm3 Normal No November 25 informati 2016 6:30 [#/volume on in AM ] in source Blood data Erythrocy 4.2 - 5.4 M/mm3 Low No November 25 keena informati 2016 6:30 [#/volume on in AM ] in source Amniotic data fluid Erythrocy 11.5 - % Normal No November 25 te 17.5 informati 2016 6:30 distribut on in AM ion width source [Entitic data volume] by Automated count Leukocyte 4.8 - K/MM3 No November 25 s 10.8 informati informati 2016 6:30 [#/volume on in on in AM ] in source source Blood data data Basic metabolic panel in Blood Observa Value Referen Units Interpr Notes Date tion ce etation Range Urea 7 - 18 mg/dL Normal No November 25 nitrogen informati 2016 6:30 [Mass/vol on in AM ume] in source Serum or data Plasma Calcium 8.5 - mg/dL Normal No November 25 [Mass/vol 10.1 informati 2016 6:30 ume] in on in AM Serum or source Plasma data Chloride 98 - 107 mmoL/L Normal No November 25 [Moles/vo informati 2016 6:30 lume] in on in AM Serum or source Plasma data Carbon 21.0 - mmoL/L Normal November 25 dioxide, 32.0 informati 2016 6:30 total on in AM [Moles/vo source lume] in data Serum or Plasma Creatinin 0.55 - mg/dL High No November 25 e 1.02 informati 2016 6:30 [Mass/vol on in AM ume] in source Serum or data Plasma Creatinin 50 - 200 ML/MIN Normal No November 25 e renal informati 2016 6:30 clearance on in AM source predicted data by Cockcroft -Gault formula Estimated 59- ML/MIN Low REFERENCE November 25 RANGE: 2016 6:30 glomerula >60 AM r ML/MIN/1. filtratio 73 SQUARE n rate METERSIf (GF this patient is -A merican, then multiply theresult by 1.210. Glucose 74 - 106 mg/dL High No November 25 [Mass/vol informati 2016 6:30 ume] in on in AM Serum or source Plasma data Potassium 3.5 - 5.1 mmoL/L Normal No November 25 informati 2016 6:30 [Moles/vo on in AM lume] in source Serum or data Plasma Sodium 136 - 145 mmoL/L Low No November 25 [Moles/vo informati 2016 6:30 lume] in on in AM Serum or source Plasma data Glucose [Mass/volume] in Capillary blood by Glucometer Observa Value Referen Units Interpr Notes Date tion ce etation Range Glucose 70 - 110 mg/dl High No November 25 [Mass/vol alert informati 2016 6:15 ume] in on in AM Capillary source blood by data Glucomete r Glucose [Mass/volume] in Capillary blood by Glucometer Observa Value Referen Units Interpr Notes Date tion ce etation Range Glucose 70 - 110 mg/dl High No November 24 [Mass/vol alert informati 2016 ume] in on in 10:23 PM Capillary source blood by data Glucomete r Urinalysis dipstick W Reflex Microscopic panel in Urine Observa Value Referen Units Interpr Notes Date tion ce etation Range Appeara CLEAR CLEAR No No No November 24 nce of informa informa informa 2016 Urine tion in tion in tion in 8:30 PM source source source data data data Bacteri TRACE O No No No November 24 a informa informa informa 2016 [Presen tion in tion in tion in 8:30 PM ce] in source source source Urine data data data sedimen t by Light microsc opy Bilirub NEGATIV NEG No No No November 24 in E informa informa informa 2016 [Presen tion in tion in tion in 8:30 PM ce] in source source source Urine data data data by Test strip Erythro 2+ NEG No Abnorma No November 24 cytes informa l informa 2016 [Presen tion in tion in 8:30 PM ce] in source source Urine data data Color OTHER YELLOW No No No November 24 of informa informa informa 2017 Urine tion in tion in tion in 8:30 PM source source source data data data Glucose NEG No High No November 24 [Mass/vol informati informati 2016 8:30 ume] in on in on in PM Urine by source source Test data data strip Ketones NEGATIV NEG mg/dL No No November 24 E informa informa 2016 [Presen tion in tion in 8:30 PM ce] in source source Urine data data by Automat ed test strip Mucus NEGATIV NEG No No No November 24 [Presen E informa informa informa 2016 ce] in tion in tion in tion in 8:30 PM Urine source source source sedimen data data data t by Light microsc opy Nitrite NEGATIV NEG No No No November 24 E informa informa informa 2016 [Presen tion in tion in tion in 8:30 PM ce] in source source source Urine data data data by Test strip pH of 5.0 - 8.5 No Normal No November 24 Urine informati informati 2016 8:30 on in on in PM source source data data Protein NEG mg/dL No No November 24 [Mass/vol informati informati 2016 8:30 ume] in on in on in PM Urine by source source Automated data data test strip Erythro NONE 0 rbc/hpf No No November 24 cytes informa informa 2016 [Presen tion in tion in 8:30 PM ce] in source source Urine data data sedimen t by Light microsc opy Specific 1.005 - No Normal No November 24 gravity 1.030 informati informati 2016 8:30 of Urine on in on in PM source source data data Epithel OCC 0 - 5 #/hpf No No November 24 ial informa informa 2017 cells.s tion in tion in 8:30 PM quamous source source data data [Presen ce] in Urine sedimen t by Microsc opy high power field Urobili 0.2 NEG E.U./dL No No November 24 nogen informa informa 2016 [Presen tion in tion in 8:30 PM ce] in source source Urine data data by Test strip Leukocy [3 O wbc/hpf No No November 24 keena wbc/hpf informa informa 2016 [#/volu ; 5 tion in tion in 8:30 PM me] in wbc/hpf source source Urine ] data data Urinalysis dipstick W Reflex Microscopic panel in Urine Observa Value Referen Units Interpr Notes Date tion ce etation Range Appeara CLEAR CLEAR No No No November 24 nce of informa informa informa 2016 Urine tion in tion in tion in 8:30 PM source source source data data data Bilirub NEGATIV NEG No No No November 24 in E informa informa informa 2016 [Presen tion in tion in tion in 8:30 PM ce] in source source source Urine data data data by Test strip Erythro 2+ NEG No Abnorma No November 24 cytes informa l informa 2016 [Presen tion in tion in 8:30 PM ce] in source source Urine data data Color OTHER YELLOW No No No November 24 of informa informa informa 2017 Urine tion in tion in tion in 8:30 PM source source source data data data Glucose NEG No High No November 24 [Mass/vol informati informati 2016 8:30 ume] in on in on in PM Urine by source source Test data data strip Ketones NEGATIV NEG mg/dL No No November 24 E informa informa 2016 [Presen tion in tion in 8:30 PM ce] in source source Urine data data by Automat ed test strip Mucus NEGATIV NEG No No No November 24 [Presen E informa informa informa 2016 ce] in tion in tion in tion in 8:30 PM Urine source source source sedimen data data data t by Light microsc opy Nitrite NEGATIV NEG No No No November 24 E informa informa informa 2016 [Presen tion in tion in tion in 8:30 PM ce] in source source source Urine data data data by Test strip pH of 5.0 - 8.5 No Normal No November 24 Urine informati informati 2016 8:30 on in on in PM source source data data Protein NEG mg/dL No No November 24 [Mass/vol informati informati 2016 8:30 ume] in on in on in PM Urine by source source Automated data data test strip Specific 1.005 - No Normal November 24 gravity 1.030 informati informati 2016 8:30 of Urine on in on in PM source source data data Urobili 0.2 NEG E.U./dL No No November 24 nogen informa informa 2016 [Presen tion in tion in 8:30 PM ce] in source source Urine data data by Test strip Glucose [Mass/volume] in Capillary blood by Glucometer Observa Value Referen Units Interpr Notes Date tion ce etation Range Glucose 70 - 110 mg/dl High No November 24 [Mass/vol alert ati 2016 8:01 ume] in on in PM Capillary source blood by data Glucomete r CBC W Auto Differential panel in Blood Observa Value Referen Units Interpr Notes Date ti ce etation Range Basophils 0 - 0.2 K/MM3 Normal No November 242016 5:45 [#/volume on in PM ] in source Blood by data Automated count Basophils 0.1 - 2.0 % Normal No November 24 / informati 2016 5:45 leukocyte on in PM s in source Blood by data Automated count Eosinophi 0.0 - 0.4 K/mm3 Normal No November 24 ls ati 2016 5:45 [#/volume on in PM ] in source Blood by data Automated count Eosinophi 0.1 - % Normal No November 24 ls/100 12.0 informati 2016 5:45 leukocyte on in PM s in source Blood by data Automated count Granulocy 1.8 - 7.8 K/mm3 Normal No November 24 keena informati 2016 5:45 [#/volume on in PM ] in source Blood by data Automated count Granulocy 37.0 - % Normal No November 24 keena/100 80.0 informati 2016 5:45 leukocyte on in PM s in source Blood by data Automated count Hematocri 37.0 - % Normal No November 24 t [Volume 47.0 informati 2016 5:45 on in PM Fraction] source of Blood data Hemoglobi 12.2 - g/dL Low No November 24 n 16.2 informati 2016 5:45 [Mass/vol on in PM ume] in source Blood data Lymphocyt 0.7 - 4.5 K/mm3 Normal No November 24 es inform2016 5:45 [#/volume on in PM ] in source Unspecifi data ed specimen by Automated count Lymphocyt 10 - 50.0 % Normal No November 24 es inform2016 5:45 [#/volume on in PM ] in source Unspecifi data ed specimen by Automated count Erythrocy 27 - 31.2 pg Normal No November 24 te mean inform2016 5:45 corpuscul on in PM ar source hemoglobi data n [Entitic mass] Erythrocy 31.8 - g/dl Low No November 24 te mean 35.4 informati 2016 5:45 corpuscul on in PM ar source hemoglobi data n concentra tion [Mass/vol ume] by Automated count Erythrocy 82.2 - fl Normal No November 24 te mean 97.8 informati 2016 5:45 corpuscul on in PM ar volume source [Entitic data volume] by Automated count Monocytes 0.1 - 1.0 K/mm3 Normal No November 242016 5:45 [#/volume on in PM ] in source Blood by data Automated count Monocytes 1.7 - 9.3 % Normal No November 24 /100 informati 2016 5:45 leukocyte on in PM s in source Blood by data Automated count Platelet 7.4 - fl Normal No November 24 mean 10.4 inform2016 5:45 volume on in PM [Entitic source volume] data in Blood by Automated count Platelets 142 - 424 K/mm3 No No November 24 informati informati 2016 5:45 [#/volume on in on in PM ] in source source Blood data data Erythrocy 4.2 - 5.4 M/mm3 Low No November 24 keena informati 2016 5:45 [#/volume on in PM ] in source Amniotic data fluid Erythrocy 11.5 - % Normal No November 24 te 17.5 informati 2016 5:45 distribut on in PM ion width source [Entitic data volume] by Automated count Leukocyte 4.8 - K/MM3 Normal No November 24 s 10.8 informati 2016 5:45 [#/volume on in PM ] in source Blood data Gas panel in Venous blood Observa Value Referen Units Interpr Notes Date tion ce etation Range Base -2.4-2.3 MMOL/L Low No November 24 excess in informati 2016 5:44 Venous on in PM blood source data Bicarbona 23 - 27 MMOL/L Low No November 24 te informati 2016 5:44 [Moles/vo on in PM lume] in source Venous data blood Carbon 41 - 51 MMHG Low No November 24 dioxide informati 2016 5:44 [Partial on in PM pressure] source in data Venous blood pH of 7.31 - MMOL/L Normal November 24 Venous 7.41 informati 2016 5:44 blood on in PM source data Oxygen 35 - 40 MMHG High No November 24 content informati 2017 5:44 in Venous on in PM blood source data Oxygen 75 - 80 % High No November 24 saturatio informati 2016 5:44 n.calcula on in PM shilo from source oxygen data partial pressure in Venous blood Carbon 23 - 27 MMOL/L Normal No November 24 dioxide, informati 2017 5:44 total on in PM [Moles/vo source lume] in data Venous blood
--- OUTSIDE RECORDS SUMMARY | 2017-06-23 11:27 | External Medical Summary Rpt | CCD ---
Demographics Preferred Language Maltese Marital Status Unknown Sikhism Affiliation Unknown Race Unknown Ethnic Group Unknown Author Author , [facility]ER[facility] Address Unknown Phone Immunization No patient found.
--- OUTSIDE RECORDS SUMMARY | 2017-06-23 11:27 | External Medical Summary Rpt | CCD ---
Demographics Preferred Language Pashto Marital Status Unknown Judaism Affiliation Unknown Race Unknown Ethnic Group Unknown Author Author , [facility]ER[facility] LOC[facility] Address Unknown Phone Immunization No patient found.
--- NOTE | 2017-06-23 12:17 | Emergency Room Report ---
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 PT HAS SOME SWELLING ABOVE HER RIHGT EYEBROW. 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 N Clinical Suspician of Infection? N Mental Status: 1 - Regular (Normal Baseline) Sepsis Risk:Low Sepsis Risk Have you (or family members/close friends) recently traveled outside the [place]? N If Yes, where/when: Have you had exposure to infectious disease within the past month? N TB? Other? Specify: Source patient, RN notes reviewed, RN/MD, EMS notes reviewed Exam Limitations no limitations Comment This is a 62-year-old group home female patient that fell forward from her wheelchair he her head on the floor. Patient has any loss of consciousness, just felt dizzy. ALLERGIES Coded Allergies: Penicillins (01/04/16) Sulfa (Sulfonamide Antibiotics) (01/04/16) codeine (01/04/16) Home Medications Active Scripts Isosorbide Mononitrate (Isosorbide Mononitrate ER) 60 MG PO DAILY #30 Ref 1 Prov: 08/05/15 Ranitidine Hcl (Zantac) 150 MG PO BID #20 TAB Prov: 11/14/14 NITROFURANTOIN MONOHYD/M-CRYST (Macrobid 100 MG Capsule) 100 MG PO BID #14 CAP Prov: 01/27/17 Reported Medications Gabapentin (Gabapentin 100MG) 200 MG PO TID Tramadol Hcl (Tramadol 50MG) 50 MG PO Q6HP PRN PAIN Valsartan (Diovan 80MG) 80 MG PO DAILY Lactulose (Lactulose) 20 GM PO DAILYP PRN CONSTIPATION Diphenhydramine Hcl (Benadryl 25MG CAP) 25 MG PO Q4HP PRN RASH Pantoprazole Sodium (Pantoprazole 40MG) 40 MG PO DAILY VENLAFAXINE HCL (Venlafaxine HCl ER) 150 MG PO QAM Venlafaxine Hydrochloride (Venlafaxine XR) 75 MG PO QHS TRIAMTERENE/HYDROCHLOROTHIAZID (Maxzide 75 MG-50 MG Tablet) 1 TAB PO DAILY NITROGLYCERIN (Nitrostat) 0.4 MG SL Q5MINP PRN CHEST PAIN GUAIFENESIN/DEXTROMETHORPHAN (Robafen-Dm Syrup) 30 ML PO Q4HP PRN COUGH MAG CARB/AL HYDROX/ALGINIC AC (Gaviscon Liquid) 30 ML PO Q4HP PRN ACID REFLUX Cholecalciferol (Vitamin D3) (Vitamin D3) 50,000 UNIT PO WEEKLY Cholecalciferol (Vitamin D3) (D3-2000) 2,000 UNIT PO QAM INSULIN NPH HUM/REG INSULIN HM (Humulin 70/30 Kwikpen) 75 UNITS SC TID Acetaminophen (Acetaminophen Extra Strength) 650 MG PO Q4HP PRN PAIN IBUPROFEN MICRONIZED (IBUPROFEN 400MG) 400 MG PO Q4HP PRN PAIN/FEVER Loperamide Hcl (Loperamide) 2 MG PO Q4HP PRN DIARRHEA Hydrocortisone (Proctozone-Hc) 2.5 TP QIDP PRN RASH Metoprolol Tartrate (Metoprolol) 100 MG PO BID PROMETHAZINE HCL (Promethazine 25mg Tab) 25 MG PO Q6HP PRN NAUSEA/VOMITING Temazepam (Restoril 30MG) 30 MG PO QHSP PRN SLEEP Paliperidone (Invega) 6 MG PO DAILY ALLOPURINOL (ZYLOPRIM 100MG) 100 MG PO DAILY History Medical History General CAD? No Angina: No NE: No Hypertension? Yes Hyperlipidemia? No CHF? No DVT? No PE? No COPD? No Asthma? Yes Anemia? No GERD? No Gastric ulcers? No GI Bleed? No Hernia? No Thyroid Problems? No Hypothyroidism? No CVA? No Seizures? Yes Diabetes? Yes Insulin Dependent: No Insulin Pump: No Home FSBS? No Renal Insuffiency? No End Stage Renal Disease? No UTI? Yes Stones? No BPH? No GB Disease: No Nephritic Syndrome? No Asplenia? No Hepatitis? No Sickle Cell Disease? No Arthritis? No Migraines? No Cataracts? No Glaucoma? Yes MRSA? No HIV? No TB? No Anxiety? No Depression? No Cancer? Yes Site: SKIN CA -NOSE More? Yes Additional hx: OSTEOARTHRITIS, PARANOID SCHIZOPHRENIA Immunization Hx DT/Tetanus Unknown Flu Refused Pneumonia Refuses Surgical Hx Previous Surgery?Y HEART CATH TMJ HYSTERECTOMY Family History Family Hx Diabetes Yes CAD Yes Hypertension Yes Hyperlipidemia Yes Cancer No TB No Social History Smoking Hx Smoker: Never Smoker Tobacco: No Packs/day < 1 Pack Alcohol Alcohol: No Review of Systems All Other Systems Reviewed and Negative Psychiatric/Neurological headache Physical Exam Vital Signs Vital Signs Date Time Temp Pulse Resp B/P Pulse O2 O2 Flow FiO2 Ox Delivery Rate 06/23 1501 72 18 96/49 96 06/23 1236 69 18 96/54 95 06/23 1116 98.0 56 16 138/78 95 General Appearance normal appearance, WD/WN, no apparent distress Eye Exam - bilateral eye normal exam, bilateral eye PERRL, bilateral eye EOMI Neck normal inspection, non-tender, supple, full range of motion Respiratory Status Yes: trachea midline, chest symmetrical, non tender chest. No: respiratory distress. Lung Sounds bilateral: normal breath sounds, lungs clear. 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 No Comment 1300-upon reevaluation patient appears medically stable, in no acute distress. Advised patient results obtained, need to follow-up with PCP regarding her incidental CT scan findings, specifically to thyroid nodules noticed a day. Further medical complaints patient to see PCP in the morning. Results/Orders Orders Procedure Date/time Status DIET-NOTHING BY MOUTH 06/23 D Active OP COURTSEY MEAL 06/[address] HEAD REQ 06/[address] SCAN REQUEST 06/23 1120 Complete XRAY/CT/US XRAY/CT/US [address] interpretation by discussed w/radiologist CT Results normal/NAD, no fracture seen, no acute ICH XRAY/CT/US 2 CT C-spine CT interpretation by discussed w/radiologist CT Results normal/NAD, no fracture seen XRAY/CT/US [address] interpretation by discussed w/radiologist CT Results see radiologist's report, no acute fracture Departure Departure Time of Disposition 1317 Disposition DC Home or Self Care(routine) Clinical Impression Primary Impression: Fall Qualifiers: Encounter type: initial encounter Qualified Code: W19.XXXA - Unspecified fall, initial encounter Secondary Impressions: Facial contusion Qualifiers: Encounter type: initial encounter Qualified Code: S00.83XA - Contusion of other part of head, initial encounter Multiple thyroid nodules Sinusitis Qualifiers: Sinusitis location: maxillary Chronicity: unspecified Qualified Code: J32.0 - Chronic maxillary sinusitis Condition STABLE Referrals Irwin ELMORE,Neal Singh (PCP/Family): Today after leaving ER Patient Instructions DI for Contusion, DI for Sinusitis, DI for Thyroid Nodule Additional Instructions Please apply an ice pack to the RIGHT supraorbital area, will up with Dr. Gayle at your earliest convenience regarding your thyroid nodules. Discharge Counseling Counseled pt/family regarding diagnosis, test results, medications/RX, home care, follow up needs Comment Please apply an ice pack to the RIGHT supraorbital area, will up with Dr. Gayle at your earliest convenience regarding your thyroid nodules. Prescriptions Current Visit Scripts Azithromycin (Zithromycin (Z-THUAN) 250MG Tab) 250 MG PO DAILY #6 TAB ED Critical Care Critical Care No at 0930
--- NOTE | 2017-06-23 12:42 | RADIOLOGY REPORT PS360 ---
CT HEAD W/O CONTRAST HISTORY: Headache/injury/head pain, contusion, hematoma, abrasion FALL WITH FACIAL SWELLING ORDERING PHYSICIAN: Ortiz Mock MD PATIENT AGE: 62 years COMPARISON: 01/04/2016 TECHNIQUE: Axial images obtained without contrast. Brain and bone windows reviewed. FINDINGS: No midline shift, mass effect, intracranial hemorrhage, hydrocephalus, or extra-axial fluid collection is evident. The calvarium has an unremarkable appearance. IMPRESSION: No acute intracranial findings.
--- NOTE | 2017-06-23 12:54 | RADIOLOGY REPORT PS360 ---
CT CERVICAL SPINE W/O CONT INDICATION: Neck pain following injury FALL WITH FACIAL SWELLING ORDERING PHYSICIAN: Ortiz Mock MD PATIENT AGE: 62 years COMPARISON: None TECHNIQUE: Axial images are obtained without contrast. Sagittal and coronal reformatted images are reviewed as well. FINDINGS: There is normal alignment. No fracture or dislocation is apparent. No prevertebral soft tissue swelling there is mild degenerative disc disease at C5-C6.. There is a right paratracheal mass measuring 3.4 x 3.6 cm consistent with enlarged thyroid/nodule. Outpatient ultrasound suggested for further evaluation. Lung apices are clear. IMPRESSION: 1. No acute fracture. 2. Right paratracheal mass consistent with enlarged thyroid/large thyroid nodule which may be better evaluated with ultrasound. There is a small 8 mm and a 4 mm left thyroid nodule as well not mentioned in the body the report.
--- NOTE | 2017-06-23 12:58 | RADIOLOGY REPORT PS360 ---
CT SINUS (MAX-FACIAL W/O CONT) CLINICAL INDICATION: Facial pain and swelling following injury FALL WITH FACIAL SWELLING ORDERING PHYSICIAN: Ortiz Mock MD PATIENT AGE: 62 years COMPARISON: None TECHNIQUE:Axial, sagittal, and coronal images are generated and reviewed without contrast FINDINGS: Soft tissue swelling is present in the right supraorbital region. Mild mucosal thickening involves the frontal and ethmoid sinuses with moderate mucosal thickening of the left maxillary sinus. No sinus air-fluid level evident.. There is a rectangular density along the anterior aspect of the left mandibular condyle. Has the patient had previous mandibular condylar surgery?. There is some fragmentation along the left ventricular condyle anteriorly which is chronic. IMPRESSION: 1. No acute fracture. 2. Right supraorbital hematoma/contusion. 3. Sinus disease
[2017-06-23] MEDS ORDERED: ZITHROMAX Z PA250 MG PO (13:19)
[2017-06-23 15:01] VITALS: BP 96/49
== END 2017-06-23 15:04 | disposition home or self-care (01) ==
LOC: ER 11:15
DX: S00.83XA Contusion of other part of head, initial encounter (principal); W19.XXXA Unspecified fall, initial encounter; J32.0 Chronic maxillary sinusitis; W07.XXXA Fall from chair, initial encounter; Y92.129 Unspecified place in nursing home as the place of occurrence of the external cause; Z79.899 Other long term (current) drug therapy; I10 Essential (primary) hypertension; J45.909 Unspecified asthma, uncomplicated; E11.9 Type 2 diabetes mellitus without complications; E04.2 Nontoxic multinodular goiter; F20.0 Paranoid schizophrenia